=== PATIENT | female | born 1980 | race African-American/Black ===

== ENCOUNTER 2022-02-12 08:12 | Emergency (ER) | payer OTHER ==
[2022-02-12 08:31] VITALS: BP 141/105; PULSE 83; RESP 18; TEMP 98.1; BMI 31.9
[2022-02-12] MEDS ORDERED: diazePAM 5 MG TABLET PO ONE (09:16)
[2022-02-12] MEDS ORDERED: KETOROLAC TROMETHAMINE 30 MG/1 ML VIAL IM ONE (09:17)
[2022-02-12] MEDS ORDERED: diazePAM 5 MG TABLET ONE (09:26)
[2022-02-12] MEDS ORDERED: KETOROLAC TROMETHAMINE 30 MG/1 ML VIAL ONE (09:26)
[2022-02-12] MEDS ORDERED: LIDOCAINE 5% TOPICAL PATCH ONE (09:38)
[2022-02-12] MEDS ORDERED: LIDOCAINE 5% TOPICAL PATCH TP ONE (10:05)
[2022-02-12] MEDS ORDERED: LIDOCAINE PATCH REMOVAL MC ONE (22:00)
== END 2022-02-12 10:39 | disposition home or self-care (01) ==
LOC: JERFT 08:12
PROC: 3E023GC Introduction of Other Therapeutic Substance into Muscle, Percutaneous Approach (ICD-10-PCS; principal; 2022-02-12)
DX: M54.2 Cervicalgia (principal)
CPT/HCPCS: 99284-25